=== PATIENT | female | born 1975 | race Caucasian/White ===

== ENCOUNTER 2019-12-03 19:27 | Emergency (ER) | payer BC ==
--- NOTE | 2019-12-03 20:04 | EDM.PDOC ---
ED HPI GENERAL MEDICAL PROBLEM - General Chief Complaint: ENT Problem Stated Complaint: RT EAR Time Seen by Provider: 12/03/19 19:36 Source of Information: Reports: Patient - History of Present Illness INITIAL COMMENTS - FREE TEXT/NARRATIVE: Pt with no pmh presents with decreased hearing in the right ear. Pt was diagnosed with OM at walk in clinic 3 days ago. Pt reports an episode of clear discharge associated with relief of pain, but decreased hearing that occured earlier today. No fever chills or any other symptoms. - Related Data Allergies Allergy/AdvReac Type Severity Reaction Status Date / Time No Known Allergies Allergy Verified 12/03/19 19:35 Home Meds: Home Meds Azithromycin 1 tab PO 12/03/19 [History] Ciprofloxacin HCl/Dexameth [Ciprodex Otic Suspension] 4 drop OT BID #1 bottle [Rx] Past Medical History - Past Health History Medical/Surgical History: Denies Medical/Surgical History Social & Family History - Family History Family Medical History: Noncontributory - Tobacco Use Smoking Status *Q: Never Smoker - Recreational Drug Use Recreational Drug Use: No ED ROS ENT - Review of Systems Review Of Systems: See Below Constitutional: Reports: No Symptoms HEENT: Reports: Ear Discharge, Other (Decreased hearing right ear). Denies: Ear Pain Respiratory: Reports: No Symptoms ED EXAM, ENT - Physical Exam Exam: See Below Exam Limited By: No Limitations General Appearance: Alert, WD/WN, No Apparent Distress Ears: Normal External Exam, TM Perforation (small inferior anterior tm perforation with granulation tissue on right tm). No: Mastoid Swelling, Mastoid Tenderness, Canal Blood, Canal Discharge, TM Bulging, TM Blood, TM Fluid Course - Vital Signs Last Recorded V/S: Last Vital Signs Temp 97 F 12/03/19 19:35 Pulse 77 12/03/19 19:35 Resp 20 12/03/19 19:35 BP 150/60 H 12/03/19 19:35 Pulse Ox 97 12/03/19 19:35 - Re-Assessments/Exams Free Text/Narrative Re-Assessment/Exam: 12/03/19 20:02 VS stable and PE described above with benign small TM perforation. Ciprodex prescribed. pt will finish zpack. I estimate a 4-6 week healing time. pt provided with PCP and ENT follow up information. Pt comfortable with plan and discharge. Strict return precautions discussed should symptoms worsen or any concerns arise. Departure - Departure Time of Disposition: 20:12 Disposition: Home, Self-Care 01 Condition: Good Clinical Impression: Otitis media, serous, TM rupture - Discharge Information *PRESCRIPTION DRUG MONITORING PROGRAM REVIEWED*: Not Applicable *COPY OF PRESCRIPTION DRUG MONITORING REPORT IN PATIENT BRUNO: Not Applicable Prescriptions: Ciprofloxacin HCl/Dexameth [Ciprodex Otic Suspension] 4 drop OT BID #1 bottle Instructions: Eardrum Perforation, [id number] Referrals: PCP,None [Primary Care Provider] - Forms: ED Department Discharge Sepsis Event Note - Evaluation Sepsis Screening Result: No Definite Risk - Focused Exam Vital Signs: Vital Signs Temp Pulse Resp BP Pulse Ox 12/03/19 19:35 97 F 77 20 150/60 H 97 Date Exam was Performed: 12/03/19 Time Exam was Performed: 20:12
== END 2019-12-03 20:28 | disposition home or self-care (01) ==
LOC: MW.ED 19:27
DX: H65.91 Unspecified nonsuppurative otitis media, right ear (principal); H72.91 Unspecified perforation of tympanic membrane, right ear
CPT/HCPCS: 99282; 99283

== ENCOUNTER 2020-08-30 06:32 | Day surgery (SDC) | payer BC ==
[2020-08-27 10:26] LABS: BLOOD UREA NITROGEN,BUN 13 mg/dL (7.0-18.0); CARBON DIOXIDE,CO2 25.8 mmol/L (21.0-32.0); CHLORIDE,CL 104 mmol/L (98-107); GLUCOSE RANDOM 93 mg/dL (74-106); POTASSIUM,K 3.9 mmol/L (3.5-5.1); SODIUM,NA 140 mmol/L (136-145)
[~2020-08-30 06:32] MED LIST: Lactated Ringers 1,000 ML IV SCH; Sodium Chloride 0.9% 10 ML SDV IV PRN; Sodium Chloride 0.9% 2.5 ML Syringe FLUSH PRN; cefOXitin 2 GM in Premix Bag 1 BAG IV ONE
--- NOTE | 2020-08-30 06:56 | PCM.PREANE ---
Preanesthetic Assessment - Anesthesia/Transfusion/Family Hx Anesthesia History: No Prior Anesthesia Family History of Anesthesia Reaction: No Transfusion History: No Prior Transfusion(s) Intubation History: Unknown - Review of Systems General: No Symptoms Pulmonary: No Symptoms Cardiovascular: No Symptoms Gastrointestinal: No Symptoms Neurological: No Symptoms Other: Reports: None - Physical Assessment Height: 5 ft 6 in Weight: 80.286 kg ASA Class: 1 Mental Status: Alert & Oriented x3 Airway Class: Mallampati = 1 Dentition: Reports: Normal Dentition Thyro-Mental Finger Breadths: 3 Mouth Opening Finger Breadths: 3 ROM/Head Extension: Full Lungs: Clear to Auscultation, Normal Respiratory Effort Cardiovascular: Regular Rate, Regular Rhythm - Lab Values: Laboratory Last Values WBC 7.49 K/uL (4.0-11.0) 08/27/20 09:59 RBC 4.70 M/uL (4.30-5.90) 08/27/20 09:59 Hgb 10.6 g/dL (12.0-16.0) L 08/27/20 09:59 Hct 35.1 % (36.0-46.0) L 08/27/20 09:59 MCV 74.7 fL (80.0-98.0) L 08/27/20 09:59 MCH 22.6 pg (27.0-32.0) L 08/27/20 09:59 MCHC 30.2 g/dL (31.0-37.0) L 08/27/20 09:59 RDW Std Deviation 43.7 fl (28.0-62.0) 08/27/20 09:59 RDW Coeff of Jolie 16 % (11.0-15.0) H 08/27/20 09:59 Plt Count 433 K/uL (150-400) H 08/27/20 09:59 MPV 9.00 fL (7.40-12.00) 08/27/20 09:59 Nucleated RBC % 0.0 /100WBC 08/27/20 09:59 Nucleated RBCs # 0 K/uL 08/27/20 09:59 Sodium 140 mmol/L (136-145) 08/27/20 09:59 Potassium 3.9 mmol/L (3.5-5.1) 08/27/20 09:59 Chloride 104 mmol/L (98-107) 08/27/20 09:59 Carbon Dioxide 25.8 mmol/L (21.0-32.0) 08/27/20 09:59 BUN 13 mg/dL (7.0-18.0) 08/27/20 09:59 Creatinine 0.8 mg/dL (0.6-1.0) 08/27/20 09:59 Est Cr Clr Drug Dosing 82.26 mL/min 08/27/20 09:59 Estimated GFR (MDRD) > 60.0 ml/min 08/27/20 09:59 Glucose 93 mg/dL (74-106) 08/27/20 09:59 Calcium 8.8 mg/dL (8.5-10.1) 08/27/20 09:59 HCG, Qual NEGATIVE (NEG) 08/27/20 09:59 Blood Type O POSITIVE 08/27/20 09:59 Antibody Screen NEGATIVE 08/27/20 09:59 - Allergies Allergies/Adverse Reactions: Allergies Allergy/AdvReac Type Severity Reaction Status Date / Time No Known Allergies Allergy Verified 08/24/20 13:21 - Blood Blood Available: No - Anesthesia Plan Pre-Op Medication Ordered: None - Acknowledgements Anesthesia Type Planned: General Anesthesia Pt an Appropriate Candidate for the Planned Anesthesia: Yes Alternatives and Risks of Anesthesia Discussed w Pt/Guardian: Yes Pt/Guardian Understands and Agrees with Anesthesia Plan: Yes PreAnesthesia Questionnaire - Past Health History Medical/Surgical History: Denies Medical/Surgical History HEENT History: Reports: Other (See Below) Other HEENT History: uses glasses for driving [place] History: Reports: Dysfunctional Uterine Bleeding, Fibroids, - Past Surgical History Head Surgeries/Procedures: Reports: None - SUBSTANCE USE Tobacco Use Status *Q: Never Tobacco User Recreational Drug Use History: No - HOME MEDS Home Medications: Home Meds Ibuprofen 800 mg PO Q6H PRN 08/24/20 [History] Levonorgestrel/Ethin.estradiol [Levonor-Eth Estrad 0.15-0.03] 1 tab PO DAILY 08/24/20 [History] Multivitamin [Multiple Vitamins] 1 tab PO DAILY 08/24/20 [History] - CURRENT (IN HOUSE) MEDS Current Meds: Current Medications Lactated Ringer's (Ringers, Lactated) 1,000 mls @ 125 mls/hr IV ASDIRECTED RENETTA Sodium Chloride (Saline Flush) 10 ml FLUSH ASDIRECTED PRN PRN Reason: Keep Vein Open Sodium Chloride (Saline Flush) 2.5 ml FLUSH ASDIRECTED PRN PRN Reason: Keep Vein Open Sodium Chloride (Normal Saline) 10 ml IV ASDIRECTED PRN PRN Reason: IV Use Discontinued Medications Cefoxitin Sodium 2 gm/ Premix 50 mls @ 100 mls/hr IV ONETIME ONE Stop: 08/27/20 09:39
[2020-08-30] MEDS ORDERED: Propofol 200 MG/20 ML SDV ONE (07:05)
[2020-08-30] MEDS ORDERED: Midazolam 1 MG/ML 2 ML SDV ONE (07:05)
[2020-08-30] MEDS ORDERED: fentaNYL 250 MCG/5 ML SDV ONE (07:06)
[2020-08-30] MEDS ORDERED: Rocuronium Bromide 50 MG/5 ML Syringe ONE (07:06)
[2020-08-30] MEDS ORDERED: Ondansetron 4 MG/2 ML SDV ONE (07:06)
[2020-08-30] MEDS ORDERED: Lidocaine 2% 5 ML SDV ONE (07:06)
[2020-08-30] MEDS ORDERED: Ketorolac 30 MG/ML SDV ONE (07:06)
[2020-08-30] MEDS ORDERED: Glycopyrrolate 0.2 MG/ML SDV ONE (07:06)
[2020-08-30] MEDS ORDERED: ceFAZolin 1 GM Vial ONE (07:34)
[2020-08-30] MEDS ORDERED: Sodium Chloride 0.9% 20 ML ONE (07:34)
[2020-08-30] MEDS ORDERED: Fluorescein 5 ML Vial ONE (07:35)
[2020-08-30] MEDS ORDERED: Acetaminophen 1,000 MG in Premix Bag 1 BAG IV PRN (09:07)
[2020-08-30] MEDS ORDERED: HYDROmorphone 2 MG/ML Syringe ONE (09:10)
[2020-08-30] MEDS ORDERED: Furosemide 40 MG/4 ML VIAL ONE (09:12)
[2020-08-30] MEDS ORDERED: Octyl 2-Cyanoacrylate 1 Tube ONE (10:09)
[2020-08-30] MEDS ORDERED: Acetaminophen/oxyCODONE 325-5 MG Tab PO PRN ×2 (10:13)
[2020-08-30] MEDS ORDERED: Morphine 4 MG/ML Syringe IVPUSH PRN (10:13)
[2020-08-30] MEDS ORDERED: Ondansetron 4 MG/2 ML SDV IVPUSH PRN (10:13)
[2020-08-30] MEDS ORDERED: Ketorolac 30 MG/ML SDV IVPUSH ONE (10:13)
[2020-08-30] MEDS ORDERED: Promethazine 25 MG/ML SDV IM PRN (10:13)
--- NOTE | 2020-08-30 10:19 | PCM.OPNOTE ---
- General Post-Op/Procedure Note Date of Surgery/Procedure: 08/30/20 Operative Procedure(s): Tlh,LSO,RS and cystoscopy. Post-Op Diagnosis: Same Primary Surgeon: Clemente Waggoner Investment Specialist: ridge ALVARADO in mLs: 100 Complications: None Condition: Good
[2020-08-30] MEDS: fentaNYL 100 MCG/2 ML SDV IVPUSH PRN ×2 (10:59→11:11)
--- NOTE | 2020-08-30 11:31 | PCM.POSTAN ---
POST ANESTHESIA ASSESSMENT - MENTAL STATUS Mental Status: Alert, Oriented - VITAL SIGNS Vital Signs: Last Vital Signs Temp 36.3 C 08/30/20 07:11 Pulse 58 L 08/30/20 11:26 Resp 10 L 08/30/20 11:26 BP 121/51 L 08/30/20 11:26 Pulse Ox 94 L 08/30/20 11:26 - RESPIRATORY Respiratory Status: Respiratory Rate WNL, Airway Patent, O2 Saturation Stable - CARDIOVASCULAR CV Status: Pulse Rate WNL, Blood Pressure Stable - GASTROINTESTINAL GI Status: No Symptoms - PAIN Pain Score: 0 - POST OP HYDRATION Hydration Status: Adequate & Stable - OBSERVATIONS Free Text/Narrative:: No anesthesia problems
[2020-08-30] MEDS: Ketorolac 30 MG/ML SDV IVPUSH PRN ×2 (16:13→21:53)
[2020-08-30] MEDS: Sodium Chloride 0.9% 10 ML Syringe FLUSH PRN (21:54)
[2020-08-31] MEDS: Ketorolac 30 MG/ML SDV IVPUSH PRN (03:57)
[2020-08-31] MEDS: Sodium Chloride 0.9% 10 ML Syringe FLUSH PRN (03:58)
[2020-08-31 06:26] LABS: BLOOD UREA NITROGEN,BUN 7 mg/dL (7.0-18.0); CARBON DIOXIDE,CO2 27.7 mmol/L (21.0-32.0); CHLORIDE,CL 104 mmol/L (98-107); GLUCOSE RANDOM 103 mg/dL (74-106); POTASSIUM,K 3.8 mmol/L (3.5-5.1); SODIUM,NA 140 mmol/L (136-145)
--- NOTE | 2020-08-31 09:42 | PCM.DCSUM1 ---
Discharge Summary - Hospital Course Free Text/Narrative:: Discharge home and follow up in 1 week for post op. Diagnosis: Stroke: No Modified [place] Scale: No Symptoms at All Modified [place] Scale Score: 0 - Discharge Data Discharge Date: 08/31/20 Discharge Disposition: Home, Self-Care 01 Condition: Good - Referral to Home Health Primary Care Physician: Roshan Aguilar MD - Discharge Diagnosis/Problem(s) (1) Status post abdominal hysterectomy and left salpingo-oophorectomy SNOMED Code(s): 171898665 ICD Code: Z90.710 - ACQUIRED ABSENCE OF BOTH CERVIX AND UTERUS; Z90.721 - ACQUIRED ABSENCE OF OVARIES, UNILATERAL; Z90.79 - ACQUIRED ABSENCE OF OTHER GENITAL ORGAN(S) Status: Acute Priority: High Current Visit: Yes - Patient Summary/Data Operative Procedure(s) Performed: Tlh,LSO,RS and cystoscopy. - Patient Instructions Diet: Usual Diet as Tolerated Activity: As Tolerated, No Strenuous Activities, Rest and Relax Today Driving: Do Not Drive Showering/Bathing: May Shower Wound/Incision Care: Keep Operative Site/Wound Site Clean and Dry Notify Provider of: Fever, Increased Pain, Swelling and Redness, Drainage, Nausea and/or Vomiting Other/Special Instructions: Discharge home and follow up in 1 week for post op. - Discharge Plan *PRESCRIPTION DRUG MONITORING PROGRAM REVIEWED*: Not Applicable *COPY OF PRESCRIPTION DRUG MONITORING REPORT IN PATIENT BRUNO: Not Applicable Home Medications: Home Meds Ibuprofen 800 mg PO Q6H PRN 08/24/20 [History] Levonorgestrel/Ethin.estradiol [Levonor-Eth Estrad 0.15-0.03] 1 tab PO DAILY 08/24/20 [History] Multivitamin [Multiple Vitamins] 1 tab PO DAILY 08/24/20 [History] Oxygen Therapy Mode: Room Air Patient Handouts: Laparoscopically Assisted Vaginal Hysterectomy, Care After Referrals: [facility] [Outside] Clemente Waggoner MD [Physician] - 09/05/20 10:00 am - Discharge Summary/Plan Comment DC Time >30 min.: No - General Info Date of Service: 08/31/20 Admission Dx/Problem (Free Text: Discharge home and follow up in 1 week for post op. Functional Status: Reports: Pain Controlled, Tolerating Diet, Ambulating, Urinating - Review of Systems General: Reports: No Symptoms HEENT: Reports: No Symptoms Pulmonary: Reports: No Symptoms Cardiovascular: Reports: No Symptoms Gastrointestinal: Reports: No Symptoms Genitourinary: Reports: No Symptoms Musculoskeletal: Reports: No Symptoms Skin: Reports: No Symptoms Neurological: Reports: No Symptoms Psychiatric: Reports: No Symptoms - Patient Data Vitals - Most Recent: Last Vital Signs Temp 37.1 C 08/31/20 08:15 Pulse 77 08/31/20 08:15 Resp 17 08/31/20 08:15 BP 113/55 L 08/31/20 08:15 Pulse Ox 96 08/31/20 08:15 Weight - Most Recent: 80.286 kg Lab Results - Last 24 hrs: Laboratory Results - last 24 hr 08/31/20 08/31/20 Range/Units 05:15 05:15 WBC 8.24 (4.0-11.0) K/uL RBC 3.70 L (4.30-5.90) M/uL Hgb 8.4 L (12.0-16.0) g/dL Hct 27.8 L (36.0-46.0) % MCV 75.1 L (80.0-98.0) fL MCH 22.7 L (27.0-32.0) pg MCHC 30.2 L (31.0-37.0) g/dL RDW Std Deviation 44.3 (28.0-62.0) fl RDW Coeff of Jolie 16 H (11.0-15.0) % Plt Count 368 (150-400) K/uL MPV 9.50 (7.40-12.00) fL Neut % (Auto) 56.0 (48.0-80.0) % Lymph % (Auto) 29.2 (16.0-40.0) % Coffey % (Auto) 12.9 (0.0-15.0) % Eos % (Auto) 1.9 (0.0-7.0) % Baso % (Auto) 0.0 (0.0-1.5) % Neut # (Auto) 4.6 (1.4-5.7) K/uL Lymph # (Auto) 2.4 (0.6-2.4) K/uL Coffey # (Auto) 1.1 H (0.0-0.8) K/uL Eos # (Auto) 0.2 (0.0-0.7) K/uL Baso # (Auto) 0.0 (0.0-0.1) K/uL Nucleated RBC % 0.0 /100WBC Nucleated RBCs # 0 K/uL Sodium 140 (136-145) mmol/L Potassium 3.8 (3.5-5.1) mmol/L Chloride 104 (98-107) mmol/L Carbon Dioxide 27.7 (21.0-32.0) mmol/L BUN 7 (7.0-18.0) mg/dL Creatinine 0.8 (0.6-1.0) mg/dL Est Cr Clr Drug Dosing 82.26 mL/min Estimated GFR (MDRD) > 60.0 ml/min Glucose 103 (74-106) mg/dL Calcium 8.0 L (8.5-10.1) mg/dL Med Orders - Current: Current Medications Lactated Ringer's (Ringers, Lactated) 1,000 mls @ 125 mls/hr IV ASDIRECTED [facility] Last Admin: 08/30/20 07:07 Dose: 125 mls/hr Documented by: Acetaminophen 1,000 mg/ Premix 100 mls @ 400 mls/hr IV Q6H PRN PRN Reason: Pain Last Admin: 08/30/20 11:15 Dose: 400 mls/hr Documented by: Ketorolac Tromethamine (Toradol) 30 mg IVPUSH Q6H PRN PRN Reason: Pain (severe 7-10) Stop: 09/04/20 10:13 Last Admin: 08/31/20 03:57 Dose: 30 mg Documented by: Morphine Sulfate (Morphine) 4 mg IVPUSH Q2H PRN PRN Reason: Pain (severe 7-10) Ondansetron HCl (Zofran) 4 mg IVPUSH Q6H PRN PRN Reason: Nausea/Vomiting Oxycodone/Acetaminophen (Percocet 325-5 Mg) 1 tab PO Q4H PRN PRN Reason: Pain (moderate 4-6) Oxycodone/Acetaminophen (Percocet 325-5 Mg) 2 tab PO Q4H PRN PRN Reason: Pain (moderate 4-6) Promethazine HCl (Phenergan) 25 mg IM Q6H PRN PRN Reason: Nausea/Vomiting Sodium Chloride (Saline Flush) 10 ml FLUSH ASDIRECTED PRN PRN Reason: Keep Vein Open Last Admin: 08/31/20 03:58 Dose: 10 ml Documented by: Sodium Chloride (Saline Flush) 2.5 ml FLUSH ASDIRECTED PRN PRN Reason: Keep Vein Open Sodium Chloride (Normal Saline) 10 ml IV ASDIRECTED PRN PRN Reason: IV Use Discontinued Medications Cefazolin Sodium (Ancef) Confirm Administered Dose 2 gm .ROUTE .STK-MED ONE Stop: 08/30/20 07:35 Fentanyl (Sublimaze) Confirm Administered Dose 250 mcg .ROUTE .STK-MED ONE Stop: 08/30/20 07:07 Fentanyl (Sublimaze) 50 mcg IVPUSH Q5M PRN PRN Reason: Pain Last Admin: 08/30/20 11:11 Dose: 50 mcg Documented by: Fluorescein Sodium (Ak-Fluor) Confirm Administered Dose 5 ml .ROUTE .STK-MED ONE Stop: 08/30/20 07:36 Furosemide (Lasix) Confirm Administered Dose 40 mg .ROUTE .STK-MED ONE Stop: 08/30/20 09:13 Glycopyrrolate (Robinul) Confirm Administered Dose 0.8 mg .ROUTE .STK-MED ONE Stop: 08/30/20 07:07 Hydromorphone HCl (Dilaudid) Confirm Administered Dose 2 mg .ROUTE .STK-MED ONE Stop: 08/30/20 09:11 Cefoxitin Sodium 2 gm/ Premix 50 mls @ 100 mls/hr IV ONETIME ONE Stop: 08/27/20 09:39 Sodium Chloride (Normal Saline) Confirm Administered Dose 20 mls @ as directed .ROUTE .STK-MED ONE Stop: 08/30/20 07:35 Ketorolac Tromethamine (Toradol) Confirm Administered Dose 30 mg .ROUTE .STK-MED ONE Stop: 08/30/20 07:07 Ketorolac Tromethamine (Toradol) 30 mg IVPUSH ONETIME ONE Stop: 08/30/20 10:14 Last Admin: 08/30/20 10:00 Dose: Not Given Documented by: Lidocaine (Xylocaine-Mpf 2%) Confirm Administered Dose 5 ml .ROUTE .STK-MED ONE Stop: 08/30/20 07:07 Midazolam HCl (Versed 1 Mg/Ml) Confirm Administered Dose 2 mg .ROUTE .STK-MED ONE Stop: 08/30/20 07:06 Octyl Cyanoacrylate (Dermabond Advance) Confirm Administered Dose 1 applic .ROUTE .STK-MED ONE Stop: 08/30/20 10:10 Ondansetron HCl (Zofran) Confirm Administered Dose 4 mg .ROUTE .STK-MED ONE Stop: 08/30/20 07:07 Propofol (Diprivan 20 Ml) Confirm Administered Dose 200 mg .ROUTE .STK-MED ONE Stop: 08/30/20 07:06 Rocuronium Lorton (Rocuronium Lorton) Confirm Administered Dose 50 mg .ROUTE .[employer]-MED ONE Stop: 08/30/20 07:07 - Exam General: Reports: Alert, Oriented, Cooperative, No Acute Distress Lungs: Reports: Clear to Auscultation, Normal Respiratory Effort Cardiovascular: Reports: Regular Rate, Regular Rhythm GI/Abdominal Exam: Soft, Non-Tender, Pelvis Stable (Female) Exam: Deferred, Vaginal Bleeding Rectal (Female) Exam: Deferred Back Exam: Reports: Full Range of Motion Extremities: Normal Range of Motion Skin: Reports: Warm, Dry, Intact Wound/Incisions: Reports: Healing Well Neurological: Reports: No New Focal Deficit, Normal Speech, Normal Tone, Sensation Intact Psy/Mental Status: Reports: Alert, Normal Affect, Normal Mood
--- NOTE | 2020-08-31 11:52 | OR ---
SURGEON: Clemente Waggoner MD DATE OF PROCEDURE: 08/30/2020 PREOPERATIVE DIAGNOSES: Menometrorrhagia, fibroid uterus. POSTOPERATIVE DIAGNOSES: Menometrorrhagia, fibroid uterus. OPERATION PERFORMED: Total laparoscopic hysterectomy, right salpingo-oophorectomy, left salpingectomy preserving the left ovary, and cystoscopy. PRIMARY SURGEON: Clemente Waggoner MD. SKIVER UPPERS OR LININGS: Smiley Wilkes. ANESTHESIA: General endotracheal intubation. ANESTHESIA PROVIDER: Des Gao and Dr. Foster. ESTIMATED BLOOD LOSS: Less than 100 mL. COMPLICATIONS: None. FINDINGS: Uterus is about 15 to 16 week size with multiple fibroids. INDICATION FOR SURGERY: [place] referred to the admit note. PROCEDURE IN DETAIL: The patient was brought to the OR, properly identified, and after adequate level of general anesthesia, the patient was placed in lithotomy position with an access to the abdomen and the vagina. Quiros catheter was placed in the bladder for drainage, and VCare manipulator was placed in the uterus for manipulation. The operation shifted abdominally. After the surgeon changed his glove and then using Veress needle, the peritoneum entered with a Veress needle beneath the umbilicus and the abdomen was insufflated with 3.5 L of carbon dioxide, and then utilizing the Visiport technique, the abdomen entered and then placed in the steep Trendelenburg. After that, a 10/12 trocar placed in the left iliac fossa and 5 mm trocar in the right iliac fossa. The operation was started by identifying the anatomy and using the Manish Harmonic scapula, the superior pedicle was coagulated, transected on the left side. The tube and ovaries included with the specimen. On the right side, the tube was included with the specimen but the right ovary preserved. The round ligament was coagulated and transected, and then, the anterior leaf of the broad ligament dissected downward medially pushing the bladder completely away from the operative field, and the manipulator was clearly palpable through the vagina. The uterine vessel coagulated, transected on both side with the Manish Harmonic scalpel, and then, the vagina entered at the level of the manipulator, using the Manish Harmonic scapula, detaching the specimen from the vagina, and then uterus, right tubes and ovary and the left tube removed vaginally, and pneumoperitoneum re-established by placing pack in the vagina. Thorough irrigation of the pelvis was done. There was no oozing, no bleeding. The ureter was seen on both sides peristalsed. We proceeded to close the vaginal cuff laparoscopically, and while we were doing that, we asked Anesthesia personnel to give the patient fluorescein and then cystoscopy performed. The bladder was intact. Both ureteric orifice was seen with the dye coming from both of them. Thus, the patency of both ureters verified and the bladder was intact. Satisfied with these finding, the procedure ended. The instrument and hardware were retrieved from the abdomen and the vagina. The multiple laparoscopic incisions were closed with 3-0 Vicryl in layer. The patient tolerated the procedure well, went to recovery room in stable general condition. DICK CABAN /[id number]
== END 2020-08-31 10:35 | disposition home or self-care (01) ==
LOC: MW.SDS 06:32 → MW.OB 10:44 → MW.SDS 08-31 10:35
PROVIDERS: ATTEND Obstetrics & Gynecology
DX: D25.1 Intramural leiomyoma of uterus (principal); N87.9 Dysplasia of cervix uteri, unspecified; Z79.899 Other long term (current) drug therapy
CPT/HCPCS: 36415; 58573; 80048; 84703; 85025; 85027; 86850; 86900; 86901; A9270; J0131; J0690; J1170; J1885; J1940; J2001; J2250; J2704; J3010; J3490; J7120; 00840; 88307; J2405